=== PATIENT | male | born 2000 | race African-American/Black ===

== ENCOUNTER 2024-02-07 03:54 | Emergency (ER) | payer OTHER, SELFPAY ==
[2024-02-07 04:00] VITALS: BP 130/76; PULSE 84; RESP 16; TEMP 36.4; O2SAT 100; BMI 28.8
--- NOTE | 2024-02-07 04:19 | ED.DENTAL ---
HPI - Dental/Oral General Chief complaint: Dental/Oral Stated complaint: Dental Pain Time Seen by Provider: 02/07/24 04:19 Source: patient and old records reviewed Mode of arrival: ambulatory Limitations: no limitations History of Present Illness ED Provider: JIMENEZ HPI Narrative: 23 yo male no sig PMH here with c/o recurrent L upper dental pain has insurance now so he is going to follow up with dentist. He denies fevers, swelling. States it never gets better. We discussed he needs definitive care with dentist. MD Complaint: tooth pain Location: Tooth # (13/14) Onset (ago): month(s) Duration: intermittent Severity: moderate Relieving factors: NSAIDs Exacerbating factors: chewing and cold Context: history of dental caries Treatment prior to arrival: none Related Data Previous Rx's ?Medication ?Instructions ?Recorded amoxicillin 500 mg capsule 500 mg PO BID 7 days #14 caps 02/07/24 ibuprofen 600 mg tablet 600 mg PO Q6H PRN pain #30 tabs 02/07/24 Allergies Allergy/AdvReac Type Severity Reaction Status Date / Time No Known Allergies Allergy Verified 02/07/24 04:04 Review of Systems Review of Systems: Constitutional : No Fever, No Chills ENT/Mouth : No swallowing difficulty, no change in voice, positive dental pain, positive jaw pain, no facial swelling Eyes: No Eye Pain, No Swelling Cardiovascular : No Chest Pain, No SOB Respiratory : No Cough, No Sputum Gastrointestinal : No Nausea, No Vomiting, No Diarrhea Genitourinary : No Dysuria Musculoskeletal : No Myalgias Skin : No rash Neuro : No Weakness, No Numbness, No Headache All other systems reviewed and are negative [facility] Past Medical History Attestation statement: The following information was validated with the patient. Source: old records reviewed Medical History (Updated 02/07/24 @ 04:33 by Charlene Clemons DO) Pain, dental Social History Social History (Updated 02/07/24 @ 04:31 by Charlene Clemons DO) Patient Tobacco Use Status: Tobacco use Unknown Physical Exam Vital Signs: Vital Signs: Last Vital Signs Temp 97.6 F 02/07/24 04:00 Pulse 84 02/07/24 04:00 Resp 16 02/07/24 04:00 BP 130/76 02/07/24 04:00 Pulse Ox 100 02/07/24 04:00 O2 Del Method Room Air 02/07/24 04:00 BMI result Body Mass Index 28.8 Appearance: Alert. Oriented X3. No acute distress. Eyes: Pupils equal, round and reactive to light. ENT: Pharynx no sublingual or submandibular swelling, no facial swelling, no abscess or fluctuance in mouth - L upper molars reports ttp I do not see a large whole or decay Neck: Normal inspection. Neck supple. CVS: Pulses normal. Respiratory: No respiratory distress. Abdomen: atraumatic Skin: Skin warm and dry. Normal skin color. Extremities: No lower extremity edema. Neuro: Oriented X 3. No motor deficit. No sensory deficit. Medical Decision Making Medical Decision Making MDM Narrative: 23 yo male with no sig PMH here with intermittent dental pain due to dental caries is now going to get dentist. He has no facial swelling, trismus, diff swallowing - overall not toxic appearing, no signs of abscess - will start on NSAIDs and amoxicillin instruct dental follow up Differential Diagnosis Differential Diagnoses: The differential diagnosis associated with the presentation includes dental pain, dental caries External Record Review External record reviewed: Outpatient record Prescription Management I considered prescription management with: Pain Medication and Antibiotic Discharge Plan Discharge Clinical Impression: Toothache Patient Disposition: Home, Self-Care Instructions: Toothache (ED) Additional Instructions: please find and follow up with a dentist return for any worsening symptoms or concerns Prescriptions: New amoxicillin 500 mg capsule 500 mg PO BID 7 Days Qty: 14 0RF ibuprofen 600 mg tablet 600 mg PO Q6H PRN (Reason: pain) Qty: 30 0RF Stand Alone Forms: Work/School Release Print Language: Mohawk
[2024-02-07] MEDS: Amoxicillin 500 MG CAPSULE PO (04:56)
[2024-02-07] MEDS: Ibuprofen 600 MG TABLET PO (04:56)
[2024-02-07 05:01] VITALS: BP 130/76; PULSE 84; RESP 16; TEMP 36.4; O2SAT 100
== END 2024-02-07 05:42 | disposition home or self-care (01) ==
PROVIDERS: Emergency Provider Emergency Medicine
DX: K08.89 Other specified disorders of teeth and supporting structures (principal)
CPT/HCPCS: 99283; 99284

== ENCOUNTER 2024-02-07 23:49 | Emergency (ER) | payer SELFPAY ==
[2024-02-07 23:59] VITALS: BP 134/67; PULSE 74; RESP 16; TEMP 36.6; O2SAT 97; BMI 28.7
--- NOTE | 2024-02-08 01:40 | ED.DENTAL ---
HPI - Dental/Oral General Chief complaint: Dental/Oral Stated complaint: dental pain Time Seen by Provider: 02/08/24 01:40 Source: patient Mode of arrival: ambulatory Limitations: no limitations History of Present Illness HPI Narrative: patient is a 23-year-old male who presents emergency department for evaluation. He has been experiencing left upper dental pain. He was seen in the emergency department last night given a prescription for ibuprofen and an antibiotic. Reports that his mother presents to the pharmacy today and only came home with a prescription for ibuprofen. He did not call the pharmacy to inquire on the status of this but he is requesting an antibiotic be sent to a new pharmacy. He did not contact any dental providers day to establish care Related Data Previous Rx's ?Medication ?Instructions ?Recorded amoxicillin 500 mg capsule 500 mg PO BID 7 days #14 caps 02/07/24 ibuprofen 600 mg tablet 600 mg PO Q6H PRN pain #30 tabs 02/07/24 amoxicillin 500 mg capsule 500 mg PO BID #13 caps 02/08/24 Allergies Allergy/AdvReac Type Severity Reaction Status Date / Time No Known Allergies Allergy Verified 02/07/24 23:59 Review of Systems Review of Systems: Yes all other systems are reviewed and are negative [facility] Past Medical History Attestation statement: The following information was validated with the patient. Source: old records reviewed Medical History Pain, dental Social History Social History (Updated 02/07/24 @ 04:31 by Charlene Clemons DO) Patient Tobacco Use Status: Tobacco use Unknown Smoked in Last 30 Days: No Use of substances other than those prescribed or required for medical reasons: No Substance Use Type: Marijuana Advance Directives: No Advance Directives Information Provided: Yes Physical Exam Vital Signs: Vital Signs: Last Vital Signs Temp 97.8 F 02/07/24 23:59 Pulse 74 02/07/24 23:59 Resp 16 02/07/24 23:59 BP 134/67 02/07/24 23:59 Pulse Ox 97 02/07/24 23:59 O2 Del Method Room Air 02/07/24 23:59 BMI result Body Mass Index 28.7 Appearance: Alert.?Oriented to person, place and time. No acute distress.?Normal affect. Eyes: Pupils equal, round and reactive to light.? ENT: Pharynx normal.?? uvula midline. No trismus. No drooling. No appreciable abscess. No gingivitis. No areas of fluctuance. No facial swelling. Submandibular swelling Neck: Normal inspection.? Neck supple.?? full range of motion. CVS: Heart sounds normal. Normal heart rate and rhythm.? Pulses normal.?? Respiratory: No respiratory distress.? Lung sounds clear to auscultation bilaterally?? Skin: Skin warm and dry.? Normal skin color.? ? Extremities: No lower extremity edema.? N Neuro: Moves all extremities spontaneously. Sensation intact bilaterally. Medications Administered Discontinued Medications Generic Name Dose Route Start Last Admin Trade Name Freq PRN Reason Stop Dose Admin Amoxicillin/Clavulanate Potassium 875 mg 02/08/24 01:49 02/08/24 01:53 Amoxicillin/Potassium Clav 875 Mg Tablet PO 02/08/24 01:50 875 mg ONCE ONE Administration Medical Decision Making Medical Decision Making MDM Narrative: Patient is a 23 old male presents emergency department for re-evaluation. Persistent dental pain no worse when compared to visit yesterday. Expresses that he did not receive a prescription for his antibiotic and wants a sent to a new pharmacy. He has been taking ibuprofen with some improvement in pain. Unfortunately he has not established care with a dental provider, I stressed to him the importance of contacting offices 1st thing tomorrow morning as they are likely to be closed with the upcoming long holiday weekend. He verbalized understanding of this. Discussed worrisome signs and symptoms that would warrant re-evaluation emergency department. All questions answered. Differential Diagnosis Differential Diagnoses: The differential diagnosis associated with the presentation includes ( See narrative above) Admission/Observation Consideration of admission/observation: Escalation of care including admission/observation considered ( See narrative above) Prescription Management I considered prescription management with: Pain Medication and Antibiotic Discharge Plan Discharge Clinical Impression: Toothache Patient Disposition: Home, Self-Care Instructions: Toothache (ED) Additional Instructions: you received a dose of your amoxicillin in the emergency department. I have sent a new prescription to the [facility] pharmacy of your choice please pick this up in the morning complete entire course. do not stop taking the medication earlier skip any doses even if you begin to feel better. As discussed it is very important that you contact a dental office for follow-up and evaluation. Hopefully these offices will be open tomorrow as it is the day before the holiday they are likely to be closed for the holiday weekend Prescriptions: New amoxicillin 500 mg capsule 500 mg PO BID Qty: 13 0RF No Action amoxicillin 500 mg capsule 500 mg PO BID 7 Days Qty: 14 0RF ibuprofen 600 mg tablet 600 mg PO Q6H PRN (Reason: pain) Qty: 30 0RF Print Language: East Timorese
[2024-02-08] MEDS: Amoxicillin/Potassium Clav 875 MG TABLET PO (01:53)
[2024-02-08 01:58] VITALS: BP 134/67; PULSE 74; RESP 16; TEMP 36.6; O2SAT 97
== END 2024-02-08 01:58 | disposition home or self-care (01) ==
PROVIDERS: Emergency Provider Emergency Medicine
DX: K08.89 Other specified disorders of teeth and supporting structures (principal)
CPT/HCPCS: 99283; 99284

== ENCOUNTER 2024-03-11 21:59 | Emergency (ER) | payer OTHER, SELFPAY ==
--- NOTE | 2024-03-12 00:58 | PC.NURSE ---
no answer from x 2 [id number]
== END 2024-03-12 00:59 | disposition left against medical advice (07) ==
PROVIDERS: Emergency Provider Internal Medicine; PCP Family Medicine
DX: Z53.21 Procedure and treatment not carried out due to patient leaving prior to being seen by health care provider (principal)

== ENCOUNTER 2024-03-12 12:03 | Emergency (ER) | payer OTHER, SELFPAY ==
[2024-03-12 12:22] VITALS: BP 117/95; PULSE 84; RESP 16; TEMP 36.5; O2SAT 97; BMI 24.1
--- NOTE | 2024-03-12 12:23 | ED.GENADULT ---
HPI - General Adult General Chief complaint: Dental/Oral Stated complaint: Dental Pain Time Seen by Provider: 03/12/24 12:23 Source: patient, RN notes reviewed and old records reviewed Mode of arrival: ambulatory Limitations: no limitations History of Present Illness ED Provider: Bernardo LAND narrative: 23-year-old male presents for evaluation left upper facial pain. He reports a remote dental fracture He reports he was trying to get his insurance sorted out so he can have definitive work on the broken tooth. He is unsure if he has any facial swelling Related Data Previous Rx's ?Medication ?Instructions ?Recorded amoxicillin 500 mg capsule 500 mg PO BID 7 days #14 caps 02/07/24 ibuprofen 600 mg tablet 600 mg PO Q6H PRN pain #30 tabs 02/07/24 amoxicillin 500 mg capsule 500 mg PO BID #13 caps 02/08/24 amoxicillin 500 mg tablet 500 mg PO TID #21 tabs 03/12/24 Allergies Allergy/AdvReac Type Severity Reaction Status Date / Time No Known Allergies Allergy Verified 03/12/24 12:24 Review of Systems ENT: Reports mouth pain PMFSH Past Medical History Medical History Pain, dental Social History Social History (Updated 02/07/24 @ 04:31 by Charlene Clemons DO) Patient Tobacco Use Status: Tobacco use Unknown Substance Use Type: Marijuana Advance Directives: No Advance Directives Information Provided: Yes Physical Exam ED Vital Signs: Vital Signs - 24 hr 03/12/24 12:22 03/12/24 12:32 Temperature 97.7 F 97.7 F Pulse Rate 84 84 Respiratory Rate 16 16 Blood Pressure 117/95 H 117/95 H Pulse Oximetry 97 97 Oxygen Delivery Method Room Air Room Air BMI result Body Mass Index 24.1 Const General: healthy appearing, comfortable, no acute distress, alert and awake Nutritional Appearance: well nourished Orientation/consciousness: patient oriented x3 HENMT Other: Dental fracture to the left upper molar. Minimal gingival edema, no obvious dental abscess. No purulent drainage. Head: Yes normocephalic and Yes atraumatic Eyes Eyelids: Yes eyelids normal Conjunctivae: conjunctivae normal Sclerae: sclerae normal Corneas: corneas normal Pupils: Equal, round and reactive pupils present EOM: EOMs intact bilaterally Neck Neck: Yes full ROM Resp Effort & Inspection: normal respiratory effort, able to speak in complete sentences and not labored Skin General skin exam: elasticity normal Neuro General: patient oriented x3 Cranial nerves: Yes Equal, round and reactive pupils present and Yes Bilaterally intact EOM present Cognition (Neuro): normal cognition Extrem Other: Moving all extremities well without any obvious deformities Medical Decision Making Medical Decision Making MDM Narrative: Patient has a chronic dental fracture and appears to have an acute infection in the area. We will treat the amoxicillin and he was strongly encouraged to follow up with the dentist for definitive treatment. There was no evidence of dental abscess warranting drainage Differential Diagnosis Differential Diagnoses: The differential diagnosis associated with the presentation includes Atypical facial pain Dental caries Dental trauma Gingivitis Dental abscess Discharge Plan Discharge Clinical Impression: Atypical face pain, Fracture of tooth Patient Disposition: Home, Self-Care Instructions: Toothache (ED) Additional Instructions: Take amoxicillin 3 times daily for 7 days. Use ibuprofen/Tylenol for pain. It is important that you follow-up with a dentist or you will likely continue to have dental infections Prescriptions: New amoxicillin 500 mg tablet 500 mg PO TID Qty: 21 0RF No Action amoxicillin 500 mg capsule 500 mg PO BID 7 Days Qty: 14 0RF ibuprofen 600 mg tablet 600 mg PO Q6H PRN (Reason: pain) Qty: 30 0RF amoxicillin 500 mg capsule 500 mg PO BID Qty: 13 0RF Interventions: ED Discharge Assessment Last Done: 03/12/24 12:32 Discharge Date/Time: 03/12/24 12:33 Print Language: Lithuanian
[2024-03-12 12:32] VITALS: BP 117/95; PULSE 84; RESP 16; TEMP 36.5; O2SAT 97
== END 2024-03-12 12:38 | disposition home or self-care (01) ==
PROVIDERS: Emergency Provider Emergency Medicine; PCP Family Medicine
DX: K04.7 Periapical abscess without sinus (principal); R51.9 Headache, unspecified; S02.5XXA Fracture of tooth (traumatic), initial encounter for closed fracture; X58.XXXA Exposure to other specified factors, initial encounter; Y93.9 Activity, unspecified; Y92.9 Unspecified place or not applicable; Y99.9 Unspecified external cause status
CPT/HCPCS: 99282; 99283

== ENCOUNTER 2024-09-25 11:22 | Emergency (ER) | payer OTHER, SELFPAY ==
[2024-09-25 11:24] VITALS: BP 117/61; PULSE 65; RESP 16; TEMP 36.2; O2SAT 97; BMI 28.5
--- NOTE | 2024-09-25 11:24 | ED_ITS ---
HPI - General Adult General Chief complaint: General Medical Stated complaint: gen med Time Seen by Provider: 09/25/24 12:49 Source: patient and old records reviewed Mode of arrival: ambulatory Limitations: no limitations History of Present Illness ED Provider: JIMENEZ HPI narrative: 23 yo male with no sig PMH presents with c/o of not having a PCP and wanting to get labs done to make sure he is okay. He denies any symptoms to me. States he is no no medications. He just wanted to be sure. complaint: wants to get checked out Onset (ago): week(s) Radiation: non-radiation Severity: mild Relieving factors: none Exacerbating factors: none Associated symptoms: denies other symptoms Treatments prior to arrival: none Related Data Previous Rx's ?Medication ?Instructions ?Recorded amoxicillin 500 mg capsule 500 mg PO BID 7 days #14 ca ps 02/07/24 ibuprofen 600 mg tablet 600 mg PO Q6H PRN pain #30 t abs 02/07/24 amoxicillin 500 mg capsule 500 mg PO BID #13 caps 01/13 10/04 amoxicillin 500 mg tablet 500 mg PO TID #21 tabs 03/12 Allergies Allergy/AdvReac Type Severity Reaction Status Date / Time carrot Allergy Hives Verified 09/25/24 11:26 Review of Systems 2 Review of Systems: Constitutional : No Fever, No Chills, No Fatigue Eyes: No Eye Pain, No Swelling, No Redness Cardiovascular : No Chest Pain, No SOB, No Dyspnea on Exertion Respiratory : No Cough, No Sputum Gastrointestinal : No Nausea, No Vomiting, No Diarrhea, No abdominal Pain Musculoskeletal : No joint pain, No Myalgias, No Joint Swelling Skin : No Skin Lesions, No rash Neuro : No Weakness, No Numbness, No Dizziness, no headache All other systems reviewed and are negative [facility] Past Medical History Attestation statement: The following information was validated with the patient. Source: old records reviewed Medical History Pain, dental Social History Social History Patient Tobacco Use Status: Tobacco use Unknown Substance Use Type: Marijuana Advance Directives: No Advance Directives Information Provided: Yes Do you have a plan to hurt others: No Plan Physical Exam ED Vital Signs: Vital Signs - 24 hr 09/25/24 11:24 09/25/24 13:01 Temperature 97.2 F 97.2 F Pulse Rate 65 65 Respiratory Rate 16 16 Blood Pressure 117/61 117/61 Pulse Oximetry 97 97 Oxygen Delivery Method Room Air Room Air BMI result Body Mass Index 28.5 Appearance: Alert. Oriented X3. No acute distress. Eyes: Pupils equal, round and reactive to light. ENT: Pharynx normal. Neck: Normal inspection. Neck supple. CVS: Normal heart rate and rhythm. Pulses normal. Respiratory: No respiratory distress. Breath sounds normal. Abdomen: Soft and nontender. Skin: Skin warm and dry. Normal skin color. Normal skin turgor. Extremities: No lower extremity edema. No calf ttp Neuro: Oriented X 3. No motor deficit. No sensory deficit. CN2-12 intact Course Course Course Narrative: 09/25/24 1124 JOEY Delacruz This is a Rapid Medical Examination (RME) performed by Kenroy Lopez PA-C in triage. Full HPI, ROS, assessment and treatment plan per primary provider in the Main ED. Hx: 23 yo M here requesting routine blood work. states he used to see his PCP yearly for routine labs. has not seen them in a while and recently moved out here. no concerns at this time. no known medical conditions. Plan: basic labs, UA Medical Decision Making Medical Decision Making [facility] Narrative: 23 yo male with no PMH here wtih c/o feeling fine but hasn't seen a doctor in a while and wanted routine labs done. He has no complaints. He has no emergent medical needs. Triage ordered routine screening labs. Differential Diagnosis Differential Diagnoses: The differential diagnosis associated with the presentation includes has no complaints no concern for active emergent issue Admission/Observation Consideration of admission/observation: Escalation of care including admission/observation considered has normal labs and no complaints no indication for admission. Lab Data [facility] Lab Attestation statement: I reviewed the patient's lab results. 09/25/24 12:25 09/25/24 12:25 Labs: Lab Results 09/25/24 Range/Units 12:25 WBC 6.4 (4.8-10.8) X10*3/uL RBC 4.90 (4.60-5.80) X10*6/uL Hgb 14.6 (14.0-18.0) g/dl Hct 41.0 L (42.0-52.0) % MCV 83.7 (80.0-98.0) fL MCH 29.8 (27.0-33.0) pg MCHC 35.6 (31.0-36.0) g/dl RDW 11.8 (11.0-16.0) % Plt Count 196 (160-400) X10*3/uL MPV 9.8 (9.4-12.4) fL Immature Gran % (Auto) 0.2 (0.0-0.4) % Neut % (Auto) 48.5 (45-73) % Lymph % (Auto) 38.1 (20-40) % [place] % (Auto) 7.7 (2-11) % Eos % (Auto) 4.9 H (0-4) % Baso % (Auto) 0.6 (0-2) % Lymph # (Auto) 2.4 (1.2-4.9) X10*3/uL [place] # (Auto) 0.5 (0.1-1.2) X10*3/uL Eos # (Auto) 0.3 (0.0-0.4) X10*3/uL Baso # (Auto) 0.0 (0.0-0.2) X10*3/uL Abs Immat Gran (auto) 0.01 (0.00-0.03) X10*3/uL Absolute Neuts (auto) 3.1 (2.0-8.3) x10*3/uL Absolute Nucleated RBC 0.000 (0.0-0.012) X10*3/uL Nucleated RBC % (auto) 0.0 (0.0-0.2) /100WBC Sodium 140 (135-145) mmol/L Potassium 4.1 (3.3-5.1) mmol/L Chloride 107 (96-108) mmol/L Carbon Dioxide 26 (22-29) mmol/L Anion Gap 11 L (12-20) BUN 12 (9-16) mg/dL Creatinine 0.84 (0.5-1.4) mg/dL Estim Creat Clear Calc 186.0 Estimated GFR > 60 Random Glucose 96 (60-115) mg/dL Calcium 9.2 (8.4-10.2) mg/dL Magnesium 2.2 (1.6-2.6) mg/dL Total Bilirubin 0.8 (0.0-1.0) mg/dL AST 36 (5-37) U/L ALT 42 H (0-40) U/L Alkaline Phosphatase 72 (39-117) U/L Total Protein 7.7 (6.5-8.0) g/dL Albumin 4.7 (3.5-5.0) g/dL Lipase 11 (8-78) U/L External Record Review External record reviewed: Outpatient record Discharge Plan Discharge Clinical Impression: Normal exam Patient Disposition: Home, Self-Care Instructions: Normal Exam (ED) Additional Instructions: blood counts reassuring mild elevation in one liver enzyme - decrease fats in your diet return for any worsening symptoms or concerns. Prescriptions: No Action amoxicillin 500 mg capsule 500 mg PO BID 7 Days Qty: 14 0RF ibuprofen 600 mg tablet 600 mg PO Q6H PRN (Reason: pain) Qty: 30 0RF amoxicillin 500 mg capsule 500 mg PO BID Qty: 13 0RF amoxicillin 500 mg tablet 500 mg PO TID Qty: 21 0RF Interventions: ED Discharge Assessment Last Done: 09/25/24 13:01 Discharge Date/Time: 09/25/24 13:01 Print Language: Palestinian
[2024-09-25 12:32] LABS: Hematocrit 41.0 % (42.0-52.0); Hemoglobin 14.6 g/dl (14.0-18.0); Imm Gran Abs Auto 0.01 X10*3/uL (0.00-0.03); Imm Gran Pct Auto 0.2 % (0.0-0.4); Lymphocytes Absolute Auto 2.4 X10*3/uL (1.2-4.9); MANUAL DIFF FLAG NO; Mean Corpuscular HGB Conc 35.6 g/dl (31.0-36.0); Mean Corpuscular Hemoglobin 29.8 pg (27.0-33.0); Mean Corpuscular Volume 83.7 fL (80.0-98.0); NRBC Abs Auto 0.000 X10*3/uL (0.0-0.012); NRBC Pct Auto 0.0 /100WBC (0.0-0.2); Platelet Count 196 X10*3/uL (160-400); Red Blood Count 4.90 X10*6/uL (4.60-5.80); White Blood Count 6.4 X10*3/uL (4.8-10.8)
[2024-09-25 12:47] LABS: Alanine Aminotransferase 42 U/L (0-40); Albumin Level 4.7 g/dL (3.5-5.0); Alkaline Phosphatase 72 U/L (39-117); Anion Gap 11 (12-20); Aspartate Amino Transferase 36 U/L (5-37); Blood Urea Nitrogen 12 mg/dL (9-16); Calcium 9.2 mg/dL (8.4-10.2); Carbon Dioxide 26 mmol/L (22-29); Chloride 107 mmol/L (96-108); Creatinine Clr Calc Pharmacy 186.0; Estimated Glomerular Filt Rate > 60; Lipase 11 U/L (8-78); Magnesium 2.2 mg/dL (1.6-2.6); Potassium 4.1 mmol/L (3.3-5.1); Sodium 140 mmol/L (135-145); Total Protein 7.7 g/dL (6.5-8.0)
--- NOTE | 2024-09-25 12:59 | PC.NURSE ---
dottie from [employer] by .
[2024-09-25 13:01] VITALS: BP 117/61; PULSE 65; RESP 16; TEMP 36.2; O2SAT 97
== END 2024-09-25 13:01 | disposition home or self-care (01) ==
LOC: HO.ED 13:01
PROVIDERS: Physician Assistant Medical; Emergency Provider Emergency Medicine; PCP Family Medicine
DX: R79.89 Other specified abnormal findings of blood chemistry (principal); Z71.1 Person with feared health complaint in whom no diagnosis is made
CPT/HCPCS: 36415; 80053; 83690; 83735; 85025; 99282; 99283